=== PATIENT | female | born 1955 | race Caucasian/White ===

== ENCOUNTER 2017-10-09 13:48 | Emergency (ER) | payer MEDICARE, MEDICAID ==
[2017-10-09 14:24] LABS: HEMATOCRIT 42.3 % (41.0-60); HEMOGLOBIN 14.4 gm/dL (12-16); MEAN CELL VOLUME 93.4 fl (81-100); MEAN CORPUSCULAR HEMOGLOBIN 31.8 pg (27.0-31.0); MEAN CORPUSCULAR HGB CONC 34.1 pg (28.0-36.0); MEAN PLATELET VOLUME 7.3 fl; PLATELET COUNT 217 Th/cmm (150-400); RED BLOOD COUNT 4.54 Mil/cmm (3.80-5.10); WHITE BLOOD COUNT 12.3 Th/cmm (4.8-10.8)
[2017-10-09 14:41] LABS: ALB/GLOB RATIO 1.2 (1.0-1.8); ALBUMIN 3.5 gm/dL (3.7-5.3); ALKALINE PHOSPHATASE 83 U/L (34-104); AMYLASE SERUM 30 U/L (29-103); ANION GAP 14.6 (7.0-16.0); BILIRUBIN,TOTAL 0.5 mg/dL (0.3-1.0); BUN - UREA NITROGEN 21 mg/dL (7-25); CARBON DIOXIDE 24.6 mEq/L (21.0-31.0); CHLORIDE 103 mEq/L (98-107); CREATININE - SERUM 0.9 mg/dL (0.6-1.2); GFR AFRICAN-AMERICAN > 60.0 ml/min (>90); GFR NON AFRICAN-AMERICAN > 60.0 ml/min; GLUCOSE 158 mg/dL (70-105); LIPASE 7 U/L (11-82); POTASSIUM SERUM 4.2 mEq/L (3.5-5.1); SGOT 21 U/L (13-39); SGPT/ALT 16 U/L (7-52); SODIUM SERUM 138 mEq/L (136-145); TOTAL PROTEIN,SERUM 6.5 gm/dL (6.0-8.3)
[2017-10-09 14:44] LABS: BAND NEUTROPHILE 0 % (0-10); BASOPHIL 0 % (0-3); EOSINOPHIL 0 % (0-5); LYMPHOCYTE 5 % (20-50); MONOCYTE 5 % (2-10); NEUTROPHILS 90 % (40-80)
[2017-10-09 15:02] LABS: URINE MICROSCOPIC INDICATED? YES; URINE SOURCE RANDOM
[2017-10-09 15:14] LABS: URINE BILIRUBIN NEGATIVE (NEGATIVE); URINE BLOOD TRACE (NEGATIVE); URINE GLUCOSE (UA) NEGATIVE (NEGATIVE); URINE KETONE NEGATIVE (NEGATIVE); URINE LEUKOCYTE ESTERASE NEGATIVE (NEGATIVE); URINE NITRATE NEGATIVE (NEGATIVE); URINE PROTEIN NEGATIVE (NEGATIVE); URINE UROBILINOGEN 0.2 E.U./dL (0.2 - 1.0)
[2017-10-09 15:23] LABS: URINE CLARITY CLEAR (CLEAR); URINE COLOR YELLOW
[2017-10-09 15:24] LABS: URINE BACTERIA NONE SEEN /hpf (NONE SEEN); URINE EPITHELIAL CELLS OCCASIONAL /lpf (FEW); URINE RBC 0-2 /hpf (0-5); URINE WBC 0-2 /hpf (0-5)
[2017-10-09] MEDS ORDERED: Levofloxacin 500mg/100mL 500 MG/100 ML BAG IV ONE ×2 (15:36→16:09)
[2017-10-09] MEDS ORDERED: Sodium Chloride 0.9% 1,000 ML IV ONE (15:37)
--- NOTE | 2017-10-09 15:41 | ED Physician Chart ---
ED Chief Complaint/HPI - Patient Information Date Seen:: 10/09/17 Time Seen:: 15:38 Chief Complaint:: Vomiting History of Present Illness:: 62 yo female with Down syndrome was brought from board and care to ER for evaluation of non bloody, non bilious vomiting once today. Patient did not vomit at ER. Allergies:: Allergies Allergy/AdvReac Type Severity Reaction Status Date / Time cefaclor Allergy Verified 10/09/17 14:05 milk Allergy Verified 10/09/17 14:04 Vitals:: Vital Signs - 8 hr 10/09/17 10/09/17 14:05 15:07 Temp 98.8 F 98.0 F HR 104 97 RR 18 20 BP 107/65 101/59 O2 Sat % 95 98 ED Review of Systems - Review of Systems General/Constitutional: No fever Skin: No skin lesions Head: No headache Eyes: No pain ENT: No earache Neck: No neck pain Cardio Vascular: No chest pain Pulmonary: SOB GI: Vomiting Musculoskeletal: No bone or joint pain Neurological: Weakness, Other (Mental retardation) ED Past Medical History - Past Medical History Past Medical History: Other (ATYPICAL BEHAVIOR, DOWN'S SYNDROME, HIATAL HERNIA, PROFOUND Mental retardation, UNSTEADY GAIT, NONVERBAL, LACTOSE INTOLERANT) Social History: Non Smoker, No Alcohol, No Drug Use Psychiatricy History: Dementia Family Medical History - Family Member Mother History Unknown: Yes ED Physical Exam - Physical Examination General/Constitutional: Awake, Alert Head: Atraumatic Eyes: PERRL Skin: No skin lesions ENMT: Nasal exam nl Neck: No nuchal rigidity Respiratory: No Wheeze/Rhonchi/Rales Cardio Vascular: RRR, No murmur, gallop, rubs, NL S1 S2 GI: No organomegaly, Nondistended Extremities: normal strength in all extremities Other Neuro/Psych comments:: Unsteady gait, screaming in the ER ED Labs/Radiology/EKG Results - Lab Results Results: Laboratory Tests 10/09/17 10/09/17 10/09/17 14:05 14:05 14:45 WBC 12.3 H RBC 4.54 Hgb 14.4 Hct 42.3 MCV 93.4 MCH 31.8 H MCHC Differential 34.1 RDW 13.0 Plt Count 217 MPV 7.3 Add Manual Diff YES Band Neutrophils % 0 Neutrophils (Manual) 90 H Lymphocytes 5 L Monocytes 5 Eosinophils 0 Basophils 0 Sodium 138 Potassium 4.2 Chloride 103 Carbon Dioxide 24.6 Anion Gap 14.6 BUN 21 Creatinine 0.9 Est GFR ( Amer) > 60.0 Est GFR (Non-Af Amer) > 60.0 BUN/Creatinine Ratio 23.3 Glucose 158 H Calcium 9.0 Total Bilirubin 0.5 AST 21 ALT 16 Alkaline Phosphatase 83 Total Protein 6.5 Albumin 3.5 L Globulin 3.0 Albumin/Globulin Ratio 1.2 Amylase 30 Lipase 7 L Urine Source RANDOM Urine Color YELLOW Urine Clarity CLEAR Urine pH 6.0 Ur Specific [place] 1.020 Urine Protein NEGATIVE Urine Glucose (UA) NEGATIVE Urine Ketones NEGATIVE Urine Blood TRACE Urine Nitrate NEGATIVE Urine Bilirubin NEGATIVE Urine Urobilinogen 0.2 Ur Leukocyte Esterase NEGATIVE Urine RBC 0-2 Urine WBC 0-2 Ur Epithelial Cells OCCASIONAL Urine Bacteria NONE SEEN - Radiology Results Results: CXR: No focal consolidation ED Assessment - Assessment General Assessment: Gatroenteritis Leukocytosis Assessment/Comments:: CBC, CMP, lipase, amylase, UA CXR NS 1L IV bolus Levofloxacin 500mg IV D/c to board and care Levofloxacin 500mg PO qd F/u PCP or return to ER if symptoms worsen ED Septic Shock - . Is Septic Shock (SBP<90, OR Lactate>4 mmol\L) present?: No - <6hrs of presentation: Vital Signs: Vital Signs - 8 hr 10/09/17 10/09/17 14:05 15:07 Temp 98.8 F 98.0 F HR 104 97 RR 18 20 BP 107/65 101/59 O2 Sat % 95 98 ED Reassessment (Disposition) - Reassessment Reassessment Condition:: Improved - Patient Disposition Discharge/Transfer:: Custodial Care - SNF
--- NOTE | 2017-10-10 09:27 | Diagnostic Imaging Report ---
Chest x-ray (single view PA) HISTORY: Suboptimal exam due to difficulty in positioning. No obvious focal bony processes. Heart size difficult to assess. IMPRESSION: 1. Very limited suboptimal exam due to difficulty in patient positioning. 2. No obvious focal prominent processes If possible a follow-up repeat radiograph recommended.
== END 2017-10-09 18:10 | disposition home or self-care (01) ==
LOC: ER 13:48
DX: K52.9 Noninfective gastroenteritis and colitis, unspecified (principal); D72.829 Elevated white blood cell count, unspecified; F03.90 Unspecified dementia, unspecified severity, without behavioral disturbance, psychotic disturbance, mood disturbance, and anxiety; Z91.011 Allergy to milk products; Z88.1 Allergy status to other antibiotic agents
CPT/HCPCS: 99285; 96365; 71045; 36415; 85007; 85025; 81001; 82150; 83690; 80053; J1956; J7030